=== PATIENT | male | born 1985 | race Caucasian/White ===

== ENCOUNTER 2019-01-11 13:41 | Outpatient (RCR) | payer OTHER ==
[~2019-01-11 13:41] MED LIST: AMOXICILLIN 50500 MG PO; NO HOME MEDICATIONS
== END 2019-04-11 | disposition home or self-care (01) ==
LOC: WSOH
DX: S61.202A Unspecified open wound of right middle finger without damage to nail, initial encounter (principal); S60.412A Abrasion of right middle finger, initial encounter; E78.00 Pure hypercholesterolemia, unspecified; Y99.0 Civilian activity done for income or pay

== ENCOUNTER 2019-11-25 00:37 | Emergency (ER) | payer BC ==
[~2019-11-25] VITALS: Ht 182.9 cm; Wt 109.1 kg
[2019-11-25 00:47] VITALS: BP 132/98; TEMP 98.5
[2019-11-25 01:51] LABS: BASO % 0.6 % (0.0-2.0); EOS # 0.1 (0.0-0.7); GRAN # 5.1 (1.4-6.5); GRAN % 70.2 % (42.2-75.2); HEMATOCRIT 43.3 % (42.0-52.0); HEMOGLOBIN 14.6 g/dl (13.5-18.0); LYMPH # 1.4 (1.2-3.4); LYMPH % 19.5 % (20.0-51.0); MEAN CELL VOLUME 91 fl (80.0-100.0); MEAN CORPUSCULAR HEMOGLOBIN 31 pg (27.0-31.0); MEAN CORPUSCULAR HGB CONC 34 g/dl (33.0-37.0); MEAN PLATELET VOLUME 11.9 fl (7.4-10.4); MONO # 0.6 (0.1-0.6); MONO % 8.4 % (1.7-9.3); PLATELET COUNT 220 K/mm3 (130-400); RED BLOOD COUNT 4.76 M/mm3 (4.20-5.60); REDCELL DISTRIBUTION WIDTH-CV 13.3 % (11.5-14.5)
[2019-11-25] MEDS ORDERED: GLUCOPHAGE1000 MG PO (01:51)
[2019-11-25] MEDS ORDERED: PRAVACHOL 40MG40 MG PO (01:51)
[2019-11-25] MEDS ORDERED: FLOMAX 0.40.4 MG/CAP PO (01:52)
[2019-11-25 02:00] LABS: ALBUMIN 4.4 gm/dL (3.5-5.0); BILIRUBIN,TOTAL 0.5 mg/dL (0.0-1.0); CALCIUM 9.6 mg/dL (8.4-10.2); CREATININE, serum 0.9 (0.66-1.25); POTASSIUM 3.3 mmol/L (3.4-5.0); TOTAL PROTEIN 7.5 gm/dL (6.4-8.2)
[2019-11-25 02:37] LABS: COLLECTION METHOD CLEAN CATCH
[2019-11-25 02:53] LABS: MUCOUS Present /lpf; PH 5 (5-8); SQUAMOUS EPITHELIAL 0-2 /hpf; URINE APPEARANCE Clear; URINE BACTERIA None Seen /hpf; URINE BILIRUBIN Negative (NEGATIVE); URINE BLOOD Negative (NEGATIVE); URINE COLOR Amber; URINE GLUCOSE Negative (NEGATIVE); URINE KETONE Negative (NEGATIVE); URINE LEUKOCYTE ESTERASE Negative (NEGATIVE); URINE NITRATE Positive (NEGATIVE); URINE PROTEIN(semi-quant) 1+ (NEGATIVE); URINE RBC 0-2 /hpf; URINE UROBILINOGEN >=4.0 mg/dL (NEGATIVE)
[2019-11-25] MEDS ORDERED: PERCOCET 325 MG1 TA2 PO (03:28)
[2019-11-25] MEDS ORDERED: ZOFRAN ODT4 MG PO (03:28)
[2019-11-25] MEDS ORDERED: CEPHALEXIN500 M1 PO (03:28)
[2019-11-25 03:52] VITALS: PULSE 89
== END 2019-11-25 03:53 | disposition home or self-care (01) ==
LOC: COL.ER 00:37
PROVIDERS: Emergency Medicine; Nurse Practitioner
DX: N20.1 Calculus of ureter (principal)
CPT/HCPCS: J0696; J1885; J2405; J7030; Q9967

== ENCOUNTER → 2020-01-29 | Outpatient (CLI) | payer BC ==
[~2020-01-29] MED LIST changes: +CEPHALEXIN500 M1 PO; +FLOMAX 0.40.4 MG/CAP PO; +GLUCOPHAGE1000 MG PO; +PERCOCET 325 MG1 TA2 PO; +PRAVACHOL 40MG40 MG PO; +ZOFRAN ODT4 MG PO
== END ==
LOC: COL.RAD 06:50
DX: R10.11 Right upper quadrant pain (principal)
CPT/HCPCS: A9537; J2805